=== PATIENT | female | born 1945 | race Caucasian/White ===

== ENCOUNTER 2021-11-18 14:26 | Emergency (ER) | payer OTHER ==
--- OUTSIDE RECORDS SUMMARY | 2021-11-18 14:31 | XMS REPORT | Continuity of Care Document ---
:1945 Author Organization [facility] t Address [address] [place] [address] Care Team Providers Name Role Phone Rayshawn Esquivel MD Primary Care Physician Alvin_Angel Attending Clinician Unavailable Aakash Kelly Attending Clinician Jacklyn Camara RN Attending Clinician Unavailable [place] CABRAL Attending Clinician Unavailable Doctor Unassigned, [place] Attending Clinician Unavailable KATIE SANCHEZ Attending Clinician Unavailable John Chen Attending Clinician Alvin_S Admitting Clinician Unavailable John Chen Admitting Clinician Payers Payer Name Policy Type Policy Number Effective Date Expiration Date S ourrosangela HUMANA - GOLD PLUS [id number] (MEDICARE REPLACEMENT HMO) Problems Condition Condition Condition Status Onset Resolution Last Treating Co mments Source Name Details Category Date Date Treatment Clinician Date Thyroid Thyroid Problem Active [facility] nodule Nodule 8-07 Family 00:00: Practic 00 e Tinea Tinea Problem Active [facility] corporis Corporis 7-05 Family 00:00: Practic 00 e Pain in Pain in Problem Active [facility] throat Throat 7-05 Family 00:00: Practic 00 e Gastroesop Gastroesop Problem Active [facility] hageal hageal 16 Family reflux Reflux 00:00: Practic disease Disease 00 e without without esophagiti Esophagiti s s Finding of Finding of Problem Active [facility] esophagus Esophagus 03-13 Fami ly 00:00: Practic 00 e Seborrheic Seborrheic Problem Active [facility] keratosis Keratosis 8-04 Fami ly 00:00: Practic 00 e Hypercoagu Hypercoagu Problem Active [facility] lability lability 4-08 Family state State 00:00: Practic 00 e Atrial Atrial Problem Active [facility] fibrillati Fibrillati 408 paddy on on 00:00: Practic 00 e Blood Blood Problem Active [facility] coagulatio Coagulatio 408 [facility] n disorder n Disorder 00:00: Pr actic 00 e Fredrickso Fredrickso Problem Active [facility] n type IIa n Type IIa 2-05 [facility] hyperlipop Hyperlipop 00:00: Pr actic roteinemia roteinemia 00 e Hyperchole Hyperchole Problem Active [facility] sterolemia sterolemia 205 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 JAZIEL 08/24/15: tender to palpation @ supraspin atus; forward elevation to 160 deg; + Breonna's and Speed's. Obstructiv Obstructiv Problem Active [facility] e sleep e Sleep 2-03 Family apnea Apnea 00:00: Practic syndrome Syndrome 00 e Common Common Problem Active 2014-02 [facility] variable Variable 1-24 Family agammaglob Agammaglob 00:00: Pr actic ulinemia ulinemia 00 e Secondary Secondary Problem Active [facility] [place] hypothyroi Hypothyroi 3-07 [facility] dism dism 00:00: Practic 00 e Hypothyroi Hypothyroi Problem Active [facility] dism dism 3-07 Family 00:00: Practic 00 e Pure Pure Problem Active [facility] hyperchole Hyperchole 307 [facility] sterolemia sterolemia 00:00: Pr actic 00 e Palpitatio Palpitati Problem Active 2021-09-18 Memoria ns ons 22:22:24 l (finding) (finding) Herm brianda Active Problem 09/18/2021 [facility] Premature Premature Problem Active 2021-09-18 Memoria atrial atrial 22:22:24 l contractio contractio He rmann n n (disorder) (disorder) Active Problem 09/18/2021 [facility] Retrostern Problem Active 2021-09-18 M emoria al pain Retrostern 22:22:24 l (finding) al pain Virgilio n (finding) Active Problem 09/18/2021 [facility] Depressive Depressiv Problem Active 2017-04-14 Memoria disorder e disorder 05:02:36 l (disorder) (disorder) He rmann Active Problem 04/14/2017 [facility] Diarrhea Diarrhea Problem Active 2017-04-14 Memoria (finding) (finding) 05:02:36 l Active [place] Problem 04/14/2017 [facility] Dry skin Dry skin Problem Active 2017-04-14 Memoria (finding) (finding) 05:02:36 l Active [place] Problem 04/14/2017 [facility] Glaucoma Glaucoma Problem Active 2017-04-14 Memoria (disorder) (disorder) 05:02:36 l Active [place] Problem 04/14/2017 [facility] Irritable Irritable Problem Active 2017-04-14 Memoria colon colon 05:02:36 l (disorder) (disorder) He rmann Active Problem 04/14/2017 [facility] Snoring Snoring Problem Active 2017-04-14 Me moria (finding) (finding) 05:02:36 l Active [place] Problem 04/14/2017 scheduled sleep study 04-23-17 [facility] History of Past Illness Condition Condition Condition Status Onset Resolution Last Treating Co mments Source Name Details Category Date Date Treatment Clinician Date Noninfecti Problem 2017-2017-04-14 2017-04-14 Memoria ve Noninfecti 04-12 05:02:36 05:02:36 l gastroente ve 06:00: Virgilio n ritis and gastroente 00 colitis, ritis and unspecifie colitis, d unspecifie d 04/12/2017 04/14/2017 [facility] Allergies, Adverse Reactions, Alerts Allergy Allergy Status Severity Reaction(s) Onset Inactive Treating Comm ents Source Name Type Date Date Clinician Anesthet Propensi Active Method i ics - ty to 11-14 st Jacquelyn adverse 00:00: Hospita Type- reaction 00 l Parabens s to drug NO KNOWN Drug Active [facility] ALLERGIE Class ity of [facility] ciproflo ciproflo Active Memori a xacin xacin l [place] medtroni medtroni Active Memori a dazole dazole l containi containi Virgilio n ng ng compound compound s s Flagyl Flagyl Active diarrhea, Memoria Cutaneous l eruption [place] (morphologic abnormality) Family History Family Member Diagnosis Comments Start Date Stop Date Source Natural father Heart disease [facility] father Hy[facility] Natural father Stroke [facility] Natural mother Heart disease [facility] Natural mother Hypertension [facility] mother Stroke [facility] Other Cancer [facility] Social History Social Habit Start Date Stop Date Quantity Comments Source Exposure to [facility] SARS-CoV-2 [facility] (event) [place] Social History 2019-03-06 2019-03-06 [facility] Suhail kyle 20:05:51 20:05:51 Alcohol intake 2015-12-14 2015-12-14 Current drinker [facility] 00:00:00 00:00:00 of alcohol (finding) Tobacco use and 2015-10-11 2015-10-11 Smokeless tobacco [facility] exposure 00:00:00 00:00:00 non-user Alcohol Comment 2015-10-05 2015-10-05 3 times a week [facility] 00:00:00 00:00:00 Sex [birth year] [facility] 00:00:00 00:00:00 Smoking Status Start Date Stop Date Source Unknown if ever smoked [facility] Social History 2017-04-06 18:39:10 2017-04-06 18:39:10 [facility] Never smoked tobacco [facility] Medications Ordered Filled Start Stop Current Ordering Indication Dosage Frequency Signature Comments Components Source Medication Medication Date Date Medication? Clinician (SIG) Name Name Metoprolol Yes = 1 tab, Mem oria Succinate 3-30 PO, Daily, l ER 25 mg 21:48: # 90 tab, Herm brianda oral 00 3 tablet, Refill(s), extended Pharmacy: release [facility], 160.02, cm, 09/15/20 14:04:00 CDT, Height, 78.182, kg, 09/15/20 14:04:00 CDT, Weight apixaban 5 Yes = 1 tab, Mem oria MG Oral 1-19 PO, Q12H, l Tablet 19:06: # 180 tab, Ketty nn [Eliquis] 00 3 Refill(s), Pharmacy: [facility], 160.02, cm, 09/15/20 14:04:00 CDT, Height, 78.182, kg, 09/15/20 14:04:00 CDT, Weight apixaban 5 2020-02 Yes = 1 tab, Mem oria MG Oral 0-21 PO, Q12H, l Tablet 18:58: # 180 tab, Ketty nn [Eliquis] 00 0 Refill(s), Pharmacy: [facility], 160.02, cm, 09/15/20 14:04:00 CDT, Height, 78.182, kg, 09/15/20 14:04:00 CDT, Weight apixaban 5 2019-02 Yes = 1 tab, Mem oria MG Oral 0-06 PO, Q12H, l Tablet 19:55: # 60 tab, Virgilio n [Eliquis] 00 0 Refill(s), Pharmacy: [place] [id number], 160.02, cm, 09/16/19 9:24:00 CDT, Height, 67.528, kg, 09/16/19 9:24:00 CDT, Weight apixaban 5 2019-02 No = 1 tab, Mem oria MG Oral 0-05 PO, Q12H, l Tablet 21:18: # 180 tab, Ketty nn [Eliquis] 00 3 Refill(s), Pharmacy: [facility], 160.02, cm, 09/16/19 9:24:00 CDT, Height, 67.528, kg, 09/16/19 9:24:00 CDT, Weight Metoprolol 2020- Yes See Memoria Succinate 7-02 Instructio l ER 25 mg 13:12: ns, TAKE 1 Her joiner oral 00 TABLET tablet, EVERY DAY, extended # 90 tab, release 3 Refill(s), Pharmacy: [facility], 160.02, cm, 03/28/19 10:22:00 [employer], Height, 63.182, kg, 03/28/19 10:22:00 [employer]ATIONAL TEACHER, Weight apixaban 5 2020-0 Yes 5 mg = 1 Mem oria MG Oral 2-19 tab, PO, l Tablet 21:08: Q12H, # [place] [Eliquis] 00 180 tab, 1 Refill(s), Pharmacy: [facility] metoprolol 2020-0 Yes 25 mg = 1 Me moria 25 mg oral 2-19 tab, PO, l tablet, 21:08: Daily, # Virgilio n extended 00 90 tab, 1 release Refill(s), Pharmacy: [facility] metoprolol 2020-0 No 25 mg = 1 Me moria 25 mg oral 2-19 tab, PO, l tablet, 20:29: Daily, # Virgilio n extended 00 90 tab, 0 release Refill(s) apixaban 5 2020-0 No 5 mg, PO, Me moria MG Oral 2-19 Q12H, 0 l Tablet 20:29: Refill(s) Virgilio n [Eliquis] 00 simvastatin 2020-0 Yes 20 mg = 1 M emoria 20 mg oral 1-09 tab, PO, l tablet 20:05: Bedtime, # Ketty nn 00 30 tab, 1 Refill(s) levothyroxi 2020-0 Yes 88 Memori a ne 88 mcg 1-09 microgram l (0.088 mg) 20:05: = 1 tab, Her joiner oral tablet 00 PO, Daily, # 60 tab, 0 Refill(s) buPROPion 2020-0 Yes 100 mg = 1 Me moria 100 mg oral 1-09 tab, PO, l tablet 20:05: BID, # 60 Virgilio n 00 tab, 0 Refill(s) bimatoprost 2020-0 Yes 1 drp, Gurmeet eduardo 0.3 MG/ML 03-06 BOTH EYES, l Ophthalmic 20:05: QPM, 0 Ketty nn Solution 00 Refill(s) [Lumigan] Estrace 2020-0 Yes PO, Daily, Gurmeet eduardo -09 0 l 20:05: Refill(s) [place] 00 Nystatin 2020-0 Yes 1 appl, Memori a 100 UNT/MG 03-06 TOP, TID, l Topical 20:05: 0 [place] Ointment Refill(s) Saline Lock No 10 mL, Gurmeet eduardo Flush 2-15 Soln, IV l 14:32: Push, As Indicated PRN for flush, first dose 04/12/17 8: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 LR 1,000 mL No 1,000 mL, M emoria 2-15 IV, 75 l 14:32: mL/hr, start date 04/12/17 8: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 Misc No 800 mL, Memoria Medication 2-15 Soln-IV, l 14:15: IV, Once, first dose 04/12/17 8:15:00 [employer]ATIONAL TEACHER, stop date 04/12/17 8:15:00 [employer] TE[employer] lidocaine No 2 mL, Memoria 2-15 Injection, l 13:50: IV, Once, first dose 04/12/17 7:50:00 VOCATIONAL TEACHER, stop date 04/12/17 7:50:00 [employer]ATIONAL TE[employer] propofol No 100 mg = Memor ia 2-15 10 mL, l 13:50: Emulsion, IV, Once, first dose 04/12/17 7:50:00 VOCATIONAL TEACHER, stop date 04/12/17 7:50:00 [employer]ATIONAL TEACHER Lidocaine No 0.2 mL, Memor ia 2% 0.2 mL 2-15 Injection, l IV Start 12:16: Subcutaneo Her [facility] [[facility]] 00 us, Once PRN for other (see comment), first dose 04/12/17 6:16:00 VOCATIONAL TEACHER LR 1,000 mL No 1,000 mL, M emoria 2-15 IV, 30 l 12:16: mL/hr, start date 04/12/17 6:16:00 [employer]ATIONAL TEACHER Estradiol Yes VAG, Memoria 0.1 MG/ML 209 qWeek, 0 l Vaginal 18:35: Refill(s) Ketty nn Cream [Estrace] Clobetasol Yes 1 marian, Memor ia Propionate 04-06 TOP, l 0.5 MG/ML 18:35: qWeek, 0 Herm brianad Topical 00 Refill(s) Cream Bupropion Yes 100 mg = 1 Me moria Hydrochlori 2-09 tabs, l de 100 MG 18:35: Oral, BID, He rmann Oral Tablet 00 0 [Wellbutrin Refill(s) ] bimatoprost Yes 1 drops, Me moria 0.1 MG/ML 2 Eye-Both, l Ophthalmic 18:32: qPM, 0 Ketty nn Solution 00 Refill(s) [Lumigan] Thyroxine Yes 88 mcg, Memor ia 2 Daily, 0 l 18:32: Refill(s), [place] 00 thyroid simvastatin Yes 20 mg = 1 M emoria 20 mg oral 04-06 tabs, l tablet 18:32: Oral, qHS, Ketty nn 00 0 Refill(s) clobetasol Yes [facility] (TEMOVATE) 24 st 0.05 % 00:00: Hospita cream 00 l LUMIGAN Yes [facility] 0.01 % 09-13 st ophthalmic 00:00: Hospita drops 00 l mupirocin Yes [facility] (BACTROBAN) 09-05 st 2 % 00:00: Hospita ointment 00 l buPROPion Yes [facility] (WELLBUTRIN 08-12 st ) 100 MG 00:00: Hospita tablet 00 l levothyroxi Yes [facility] i ne 6-17 st (SYNTHROID, 00:00: Hospit a LEVOTHROID) 00 l 88 MCG tablet simvastatin Yes Method i (ZOCOR) 20 6-17 st MG tablet 00:00: Hospita 00 l meloxicam Yes [facility] (MOBIC) 15 6-14 st MG tablet 00:00: Hospita 00 l bupropion bupropion No bupropion [place] HCl 100 mg HCl 100 mg HCl 100 mg Family tablet TAKE tablet TAKE tablet Practic 1 TABLET 1 TABLET TAKE 1 e TWICE DAILY TWICE DAILY TABLET TWICE DAILY Eliquis 5 Eliquis 5 No Eliquis 5 Village mg tablet mg tablet mg tablet Family Take 1 Take 1 Take 1 Practic tablet tablet tablet e twice a day twice a day twice a by oral by oral day by route. route. oral route. famotidine famotidine No famotidine [facility] 40 mg 40 mg 40 mg Family tablet Take tablet Take tablet Practic 1 tablet 1 tablet Take 1 e every day every day tablet by oral by oral every day route. route. by oral route. ketoconazol ketoconazol No ketoconazo [facility] e 2 % e 2 % le 2 % Family topical topical topical Practi c cream APPLY cream APPLY cream e TO THE TO THE APPLY TO AFFECTED AFFECTED THE AREA(S) BY AREA(S) BY AFFECTED TOPICAL TOPICAL AREA(S) BY ROUTE TWICE ROUTE TWICE TOPICAL DAILY DAILY ROUTE TWICE DAILY levothyroxi levothyroxi No levothyrox [facility] ne 88 mcg ne 88 mcg ine 88 mcg Family tablet Take tablet Take tablet Practic 1 tablet 1 tablet Take 1 e every day every day tablet by oral by oral every day route. route. by oral route. Lumigan Lumigan No Lumjurgen [place] e 0.01 % eye 0.01 % eye 0.01 % eye Family drops 1 drops 1 drops 1 Practi c drop in drop in drop in e each eye each eye each eye metoprolol metoprolol No metoprolol [facility] succinate succinate succinate Family ER 25 mg ER 25 mg ER 25 mg Pra ctic tablet,exte tablet,exte tablet,ext e nded nded ended release 24 release 24 release 24 hr Take 1 hr Take 1 hr Take 1 tablet tablet tablet every day every day every day by oral by oral by oral route. route. route. pantoprazol pantoprazol No 1 Q1D pantoprazo [facility] e 40 mg e 40 mg le 40 mg Famil y tablet,milagros tablet,milagros tablet,del Practic yed release yed release ayed e Take 1 Take 1 release tablet tablet Take 1 every day every day tablet by oral by oral every day route. route. by oral route. [facility] mg n 20 mg Family tablet TAKE tablet TAKE tablet Practic 1 TABLET AT 1 TABLET AT TAKE 1 e BEDTIME BEDTIME TABLET AT BEDTIME Immunizations Ordered Filled Immunization Date Status Comments [facility] e Immunization Name Name SARS-COV-2 COVID-19 2020-06-03 Completed Unive [facility] of PFIZER VACCINE 00:00:00 [facility] SARS-COV-2 COVID-19 2020-06-03 Completed Unive rsity of [employer] VACCINE 00:00:00 [facility] SARS-COV-2 COVID-19 2020-05-12 Completed Unive rsity of PFIZER VACCINE 00:00:00 [facility] SARS-COV-2 COVID-19 2020-05-12 Completed Unive rsity of PFIZER VACCINE 00:00:00 [facility] influenza, influenza, 2016-12-13 Completed [facility] seasonal, seasonal, 00:00:00 Practice injectable, injectable, preservative free preservative free influenza, influenza, 2015-11-05 Completed [facility] seasonal, seasonal, 00:00:00 Practice injectable, injectable, preservative free preservative free pneumococcal pneumococcal 2015-05-06 Completed [facility] paddy conjugate PCV 13 conjugate PCV 13 00:00:00 Pr actice Influenza, Influenza, 2014-10-26 Completed [facility] injectable, MDCK, injectable, MDCK, 00:00:00 Practice preservative free preservative free influenza, influenza, 2013-11-03 Completed [facility] seasonal, seasonal, 00:00:00 Practice injectable injectable influenza, influenza, 2013-01-16 Completed [facility] seasonal, seasonal, 00:00:00 Practice injectable injectable Vital Signs Vital Name Observation Time Observation Value Comments Source BP Diastolic 2021-09-27 00:00:00 83 mm[Hg] [facility] Practice BP Systolic 2021-09-27 00:00:00 139 mm[Hg] [facility] BP Diastolic 2021-08-30 00:00:00 78 mm[Hg] [facility] Height 2021-08-30 00:00:00 64 [in_i] [facility] BMI (Body Mass Index) 2021-08-30 00:00:00 30.7 kg/m2 [facility] BP Systolic 2021-08-30 00:00:00 124 mm[Hg] [facility] Body Weight 2021-08-30 00:00:00 179 [lb_av] [facility] BP Diastolic 2021-08-23 00:00:00 80 mm[Hg] [facility] Height 2021-08-23 00:00:00 64 [in_i] [facility] BMI (Body Mass Index) 2021-08-23 00:00:00 29.2 kg/m2 [facility] BP Systolic 2021-08-23 00:00:00 120 mm[Hg] [facility] Body Weight 2021-08-23 00:00:00 170 [lb_av] [facility] Height 2021-05-31 00:00:00 64 [in_i] [facility] BMI (Body Mass Index) 2021-05-31 00:00:00 29.2 kg/m2 [facility] Body Weight 2021-05-31 00:00:00 170 [lb_av] [facility] BP Diastolic 2021-03-02 00:00:00 78 mm[Hg] [facility] Practice Height 2021-03-02 00:00:00 64 [in_i] [facility] BMI (Body Mass Index) 2021-03-02 00:00:00 29.2 kg/m2 [facility] Practice BP Systolic 2021-03-02 00:00:00 155 mm[Hg] [facility] Practice Body Weight 2021-03-02 00:00:00 170.2 [lb_av] [facility] Practice Systolic (mm Hg) 2020-09-15 19:04:00 Gurmeet rial [place] Diastolic (mm Hg) 2020-09-15 19:04:00 Mem orial [place] Heart Rate 2020-09-15 19:04:00 [facility] [place] Height 2020-09-15 19:04:00 160.02 cm [facility] [place] Weight 2020-09-15 19:04:00 [facility] [place] BMI Calculated 2020-09-15 19:04:00 Memori al [place] Systolic (mm Hg) 2019-09-16 14:24:00 Gurmeet rial [place] Diastolic (mm Hg) 2019-09-16 14:24:00 Mem orial [place] Heart Rate 2019-09-16 14:24:00 [facility] [place] Height 2019-09-16 14:24:00 160.02 cm [facility] [place] Weight 2019-09-16 14:24:00 [facility] [place] BMI Calculated 2019-09-16 14:24:00 Memori al [place] Systolic (mm Hg) 2019-03-28 16:22:00 Gurmeet rial [place] Diastolic (mm Hg) 2019-03-28 16:22:00 Mem orial [place] Heart Rate 2019-03-28 16:22:00 [facility] [place] Height 2019-03-28 16:22:00 160.02 cm [facility] [place] Weight 2019-03-28 16:22:00 [facility] [place] BMI Calculated 2019-03-28 16:22:00 Memori al [place] Systolic (mm Hg) 2019-03-20 15:57:00 Gurmeet rial [place] Diastolic (mm Hg) 2019-03-20 15:57:00 Mem orial [place] Heart Rate 2019-03-20 15:57:00 [facility] [place] Height 2019-03-20 15:57:00 160.02 cm [facility] [place] Weight 2019-03-20 15:57:00 [facility] [place] BMI Calculated 2019-03-20 15:57:00 Memori al [place] Systolic (mm Hg) 2019-03-06 20:01:00 Gurmeet rial [place] Diastolic (mm Hg) 2019-03-06 20:01:00 Mem orial [place] Heart Rate 2019-03-06 20:01:00 [facility] [place] Height 2019-03-06 20:01:00 160.02 cm [facility] [place] Weight 2019-03-06 20:01:00 [facility] [place] BMI Calculated 2019-03-06 20:01:00 Memori al [place] Systolic (mm Hg) 2017-04-12 14:52:00 Gurmeet rial [place] Diastolic (mm Hg) 2017-04-12 14:52:00 Mem orial [place] Respitory Rate 2017-04-12 14:52:00 Memori al [place] Heart Rate 2017-04-12 14:20:00 [facility] [place] Systolic (mm Hg) 2017-04-12 14:20:00 Gurmeet rial [place] Diastolic (mm Hg) 2017-04-12 14:20:00 Mem orial [place] Respitory Rate 2017-04-12 14:20:00 Memori al [place] Heart Rate 2017-04-12 14:10:00 [facility] [place] Systolic (mm Hg) 2017-04-12 14:10:00 Gurmeet rial [place] Diastolic (mm Hg) 2017-04-12 14:10:00 Mem orial [place] Respitory Rate 2017-04-12 14:10:00 Memori al [place] Temperature Oral (F) 2017-04-12 14:00:00 36.3 Radha [facility] [place] Heart Rate 2017-04-12 14:00:00 [facility] [place] Height 2017-04-12 12:16:00 160.02 cm [facility] [place] Temperature Oral (F) 2017-04-12 12:16:00 36.4 Radha [facility] [place] Height 2017-04-06 18:29:00 160.02 cm [facility] [place] Procedures Procedure Date / Time Performing Clinician Source Performed US, NECK, 2021-08-30 00:00:00 [facility] Katja hunter THYROID/PARATHYROID Practice bone density 2021-03-02 00:00:00 [facility] Katja hunter Practice MAMMO, screening, 2021-03-02 00:00:00 [facility] Ronald paddy digital, bilateral Practice ASSIGNMENT OF BENEFITS 2020-10-17 20:19:13 Doctor Unassigned, No [facility] COLONOSCOPY FLEXIBLE; 2017-04-12 13:52:00 Alexandra Wang WITH BIOPSY; SINGLE OR MULTIPLE [id number] (Other)<sup>1</sup> Repair of Shoulder 2017-02-26 00:00:00 [facility] canelo [facility] Shoulder surgery 2015-09-27 00:00:00 Katja swanson Hysterectomy (Total) 1986-02-26 00:00:00 [facility] Practice Section 1983-02-26 00:00:00 [facility] Practice Hysterectomy 1983-02-26 00:00:00 [facility] brianda [facility] colonoscopy<sup>2</sup> [facility] Plan of Care Planned Activity Planned Date Details Comments Source Future Scheduled 2021-10-27 HEPATITIS B VACCINES [facility] Test 07:04:32 (1 of 3 - 3-dose series) [code = HEPATITIS B VACCINES (1 of 3 - 3-dose series)] Future Scheduled 2021-10-27 COVID-19 VACCINE (#1) [facility] Test 07:04:32 [code = COVID-19 VACCINE (#1)] Future Scheduled 2021-10-27 BREAST CANCER [facility] Test 07:04:32 SCREENING [code = BREAST CANCER SCREENING] Future Scheduled 2021-10-27 COLONOSCOPY SCREENING [facility] Test 07:04:32 [code = COLONOSCOPY SCREENING] Future Scheduled 2021-10-27 SHINGLES VACCINES (1 [facility] Test 07:04:32 of 2) [code = SHINGLES VACCINES (1 of 2)] Future Scheduled 2021-10-27 65+ [facility] 07:04:32 VACCINE (1 - PCV) [code = 65+ PNEUMOCOCCAL VACCINE (1 - PCV)] Future Scheduled 2021-10-27 [facility]FLUENZA [facility]ACCINE [facility] 07:04:32 [code = INFLUENZA VACCINE] Encounters Start End Encounter Admission Attending Care Care Encounter Source Date/Time Date/Time Type Type Clinicians Facility Department ID 2021-11-03 2021-11-03 Outpatient MARIBEL LÓPEZ [id number] Memoria 14:00:00 14:00:00 09 l [place] 2021-10-04 2021-10-04 Outpatient Dave_S VFP VFP [id number] [facility] 00:00:00 00:00:00 [id number] Family Practic e 2021-09-27 2021-09-27 Outpatient Dave_S VFP VFP [id number] [facility] 00:00:00 00:00:00 [id number] Family Practic e 2021-09-27 2021-09-27 Rayshawn VFP [place] - [id number] [facility] 00:00:00 00:00:00 Sabas Norton Family DO: [id number] Medical - Pract ic 1092 _[facility] [address] [facility], ([facility]) [place] [address] , Ph. 2021-09-16 2021-09-16 Ambulatory nullFlavo [facility] [id number] Memoria 18:15:00 18:15:00 Pre-Reg r Cardiology 08 l Model Ketty nn 2021-09-16 2021-09-16 Outpatient MARIBEL LÓPEZ [id number] Memoria 13:15:00 13:15:00 08 frida Johnston 2021-09-16 2021-09-16 Outpatient Maniar, RC [id number] 13:15:00 13:15:00 Aakash H 08 2021-09-16 2021-09-16 Outpatient Dave_S VFP VFP [id number] [facility] [facility] 00:00:00 [id number] Family Practic e 2021-09-14 2021-09-14 [place] [id number] Memoria 18:15:00 18:15:00 Pre-Reg r Cardiology 07 l Peg Virgilio n 2021-09-14 2021-09-14 Outpatient MARIBEL LÓPEZ [id number] Memoria 13:15:00 13:15:00 07 l Preston 2021-09-14 2021-09-14 Outpatient Maniar, MG [facility] [id number] 13:15:00 13:15:00 Aakash Cao 2021-08-30 2021-08-30 Outpatient Dave_S VFP VFP [id number] [facility] 12:27:00 12:27:00 [id number] Family Practic e 2021-08-30 2021-08-30 Outpatient Dave_S VFP VFP [id number] [facility] 00:00:00 00:00:00 [id number] Family Practic e 2021-08-30 2021-08-30 Rayshawn VFP [place] - [id number] [facility] 00:00:00 00:00:00 Sabas Norton Family DO: 1309 Medical - Pract ic Fm [address] [address] Suite [facility] ([place] [address] , Ph. 2021-08-25 2021-08-25 Outpatient Dave_S VFP VFP [id number] [facility] 02:56:00 02:56:00 [id number] Family Practic e 2021-08-25 2021-08-25 Outpatient VFP VFP [id number] [facility] 02:56:00 02:56:00 [id number] Family Practic e 2021-08-24 2021-08-24 Outpatient Dave_S VFP VFP [id number] [facility] 12:07:00 12:07:00 [id number] Family Practic e 2021-08-23 2021-08-23 Outpatient Dave_S VFP VFP [id number] [facility] 06:07:00 06:07:00 [id number] Family Practic e 2021-08-23 2021-08-23 Jacklyn VFP [place] - [id number] V [facility] 00:00:00 00:00:00 Yaritza MILLWR[employer] SUPERVISOR: [facility] 1309 Medical - Practi c [address] [facility] [place] [address] , Ph. 2021-05-31 2021-05-31 Outpatient Dave_S VFP VFP [id number] [facility] 03:26:00 03:26:00 [id number] Family Practic e 2021-05-31 2021-05-31 Outpatient VFP VFP [id number] [facility] 03:26:00 03:26:00 [id number] Family Practic e 2021-05-31 2021-05-31 Rayshawn VFP [place] - [id number] [facility] 00:00:00 00:00:00 Sabas Norton Family DO: 1309 Medical - Pract ic Fm [address] [address] [facility], ([facility]) [place] [address] , Ph. 2021-05-25 2021-05-27 Phone nullFlavo [facility] [id number] Memoria 19:52:23 04:59:59 Message r Cardiology 06 l [facility] Virgilio 2021-05-25 2021-05-26 Outpatient MHMG [facility] [id number] 14:52:23 23:59:59 06 2021-05-11 2021-05-11 Outpatient VFP VFP [id number] [facility] 11:28:00 11:28:00 [id number] Family Practic e 2021-03-16 2021-03-18 Phone nullFlavo [facility] [id number] Memoria 16:50:17 05:59:59 Message r Cardiology 05 l [facility] Virgilio 2021-03-16 2021-03-17 Outpatient [facility] [id number] 10:50:17 23:59:59 05 2021-03-17 2021-03-17 Outpatient Dave_S VFP VFP [id number] [facility] 11:54:00 11:54:00 [id number] Family Practic e 2021-03-15 2021-03-15 Outpatient Dave_S VFP VFP [id number] [facility] 10:10:00 10:10:00 [id number] Family Practic e 2021-03-14 2021-03-14 Outpatient Dave_S VFP VFP [id number] [facility] 02:44:00 02:44:00 [id number] Family Practic e 2021-03-02 2021-03-02 Outpatient Dave_S VFP VFP [id number] [facility] 11:03:00 11:03:00 [id number] Family Practic e 2021-03-02 2021-03-02 Outpatient Dave_S VFP VFP [id number] Village 05:34:00 05:34:00 [id number] Family Practic e 2021-03-02 2021-03-02 Outpatient Dave_S VFP VFP [id number] - [facility] 05:34:00 05:34:00 [id number] Family Practic e 2021-03-02 2021-03-02 Rayhsawn VFP [place] - [id number] [facility] 00:00:00 00:00:00 Sabas Norton Family DO: 1309 Medical - Pract ic Fm [address] [address] [facility], ([facility]) [place] [address] , Ph. 2021-01-27 2021-01-27 Outpatient Dave_S VFP VFP [id number] [facility] 08:58:00 08:58:00 [id number] Family Practic e 2020-12-13 2020-12-15 Phone nullFlavo [facility] [id number] Memoria 14:31:18 04:59:59 Message r Cardiology 04 l [facility] Virgilio n 2020-12-13 2020-12-14 Outpatient [facility] [id number] 09:31:18 23:59:59 04 2020-10-19 2020-10-19 Letter Jacklyn Camara [id number] [facility] 00:00:00 00:00:00 (Out) EDGARDO [id number] [facility] [id number] Jovan as [phone] [address] 2020-10-17 2020-10-17 Outpatient R [facility] [id number] [facility] 15:45:00 15:45:00 [id number] ity [facility] 2020-10-17 2020-10-17 Outpatient R [facility] [id number] Univers 15:45:00 15:45:00 ity [facility] 2020-10-17 2020-10-17 Outpatient R MISHA [facility] [id number] Univers 15:20:00 15:20:00 , [place] [facility] 2020-10-17 2020-10-17 Orders Doctor DEJA [id number] [facility] 00:00:00 00:00:00 Only Unassigned, EDGARDO [id number] [facility] [place] [facility] [id number] Jovan as [phone] [address] 2020-09-15 2020-09-16 Outpatient nullFlavo [facility] [id number] Memoria 19:30:00 04:59:59 r Cardiology 06 l Peg alexandre 2020-09-15 2020-09-15 Outpatient Maniar, [facility] [id number] 14:30:00 23:59:59 Aakash Suhail 06 2020-09-15 2020-09-15 Outpatient MHIE MHIE [id number] Memoria 14:30:00 14:30:00 06 frida Johnston 2020-06-03 2020-06-03 Outpatient Kathy SANCHEZ [facility] [id number] Univers 11:00:00 10:51:33 KATIE [facility] 2020-05-12 2020-05-12 Outpatient Kathy SANCHEZ, [facility] [id number] Univers 11:00:00 10:44:46 KATIE [facility] 2019-12-02 2019-12-04 Phone nullFlavo [facility] [id number] Memoria 19:33:50 04:59:59 Message r Cardiology 02 l Peg Lewisan baldomero 2019-12-02 2019-12-03 Outpatient [facility] [id number] 14:33:50 23:59:59 2019-12-01 2019-12-03 Phone nullFlavo [facility] [id number] Memoria 16:46:31 04:59:59 Message r Cardiology 01 l Peg alexandre 2019-12-01 2019-12-02 Outpatient [facility] [id number] 11:46:31 23:59:59 2019-09-16 2019-09-17 Outpatient nullFlavo [facility] [id number] Memoria 14:30:00 04:59:59 r Cardiology 05 l Peg Poole n 2019-09-16 2019-09-16 Outpatient Maniar, [facility] MG [id number] 09:30:00 23:59:59 Aakash H 05 2019-09-16 2019-09-16 Outpatient MHIE MHIE [id number] Memoria 09:30:00 09:30:00 05 l Preston 2019-08-28 2019-08-29 Between nullFlavo MG [id number] Memoria 13:12:44 13:12:44 Visit r Cardiology 03 l Peg Poole n 2019-08-28 2019-08-29 Outpatient MH[facility] MG [id number] 08:12:44 08:12:44 03 2019-04-16 2019-04-18 Phone nullFlavo MG [id number] Memoria 20:27:11 05:59:59 Message r Cardiology 00 l Peg alexandre 2019-04-16 2019-04-17 Outpatient [facility] MG [id number] 14:27:11 23:59:59 00 2019-03-28 2019-03-29 [place] [id number] Memoria 16:15:00 05:59:59 r Cardiology 04 l Peg Poole n 2019-03-28 2019-03-28 Outpatient Maniar, [facility] MG [id number] 10:15:00 23:59:59 Aakash H 04 2019-03-28 2019-03-28 Outpatient MHIE IE [id number] Memoria 10:15:00 10:15:00 04 frida LewisPreston 2019-03-20 2019-03-21 [place] [id number] Memoria 15:00:00 05:59:59 r Cardiology 01 l Peg Poole n 2019-03-20 2019-03-21 [place] [id number] Memoria 14:00:00 05:59:59 r Cardiology 02 l Peg Poole n 2019-03-20 2019-03-21 [place] [id number] Memoria 14:00:00 05:59:59 r Cardiology 03 l Peg Poole n 2019-03-20 2019-03-20 Outpatient Maniar, [facility] MG [id number] 09:00:00 23:59:59 Aakash H 01 2019-03-20 2019-03-20 Outpatient Maniar, [facility] [id number] 08:00:00 23:59:59 Aakash H 02 2019-03-20 2019-03-20 Outpatient Maniar, [facility] [id number] 08:00:00 23:59:59 Aakash H 03 2019-03-20 2019-03-20 Outpatient [facility] [id number] Memoria 09:00:00 09:00:00 01 l Preston 2019-03-20 2019-03-20 Outpatient IE [facility] [id number] Memoria 08:00:00 08:00:00 03 l Preston 2019-03-20 2019-03-20 Outpatient [facility] [id number] Memoria 08:00:00 08:00:00 02 l Preston 2019-03-06 2019-03-07 Outpatient nullFlavo [facility] [id number] Memoria 19:45:00 05:59:59 r Cardiology 00 l [facility] Virgilio n 2019-03-06 2019-03-06 Outpatient Maniar, [facility] [id number] 13:45:00 23:59:59 Aakash H 00 2019-03-06 2019-03-06 Outpatient [facility] [id number] Memoria 13:45:00 13:45:00 00 frida Johnston 2017-04-12 2017-04-12 Outpatient nullFlavo [facility] [id number] Memoria 11:54:05 15:00:00 kathy Johnston [facility] 2017-04-12 2017-04-12 [facility] [id number] 05:54:05 09:00:00 John B 8 2017-04-12 2017-04-12 Outpatient nullFlavo [facility] [id number] Memoria 05:54:05 09:00:00 kathy Johnston Results Test Description Test Time Test Comments Results Result Comments Source Influenza virus A and B and SARS-CoV+SARS-CoV-2 (COVID -19) 2021-08-23 16:52:32 panel - Upper respiratory specimen by Rapid immunoassay Test Item Value Reference Range Interpretation Comme nts Influenza A (test code = Influenza A) Presumptive Negative Influenza B (test code = Influenza B) Presumptive Negative SARS-CoV-2 Antigen (test code = SARS-CoV-2 Antigen) Presumptive Neg ative [facility] SARS-CoV+SARS-CoV-2 (COVID- 19) Ag panel - Upper respiratory specimen by Rapid [id number] 16:52:32 Test Item Value Reference Range Interpretation Comments Influenza A (test code = Presumptive Negative Influenza A) Influenza B (test code = Presumptive Negative Influenza B) SARS-CoV-2 Antigen (test Presumptive Negative code = SARS-CoV-2 Antigen) [facility] and SARS-CoV+SARS-CoV-2 (COVID- 19) Ag panel - Upper respiratory specimen by Rapid [id number] 16:52:32 Test Item Value Reference Range Interpretation Comments Influenza A (test code = Presumptive Negative Influenza A) Influenza B (test code = Presumptive Negative Influenza B) SARS-CoV-2 Antigen (test Presumptive Negative code = SARS-CoV-2 Antigen) [facility], [id number] 16:52:04 Test Item Value Reference Range Interpretation Comments Strep (test code = Strep) negative [facility], [id number] 16:52:04 Test Item Value Reference Range Interpretation Comments Strep (test code = Strep) negative [facility], [id number] 16:52:04 Test Item Value Reference Range Interpretation Comments Strep (test code = Strep) negative [facility]
--- NOTE | 2021-11-18 15:12 | RAD REPORT ---
EXAM DESCRIPTION: CT - CTHCSPWOC - 11/18/2021 3:03 pm CLINICAL HISTORY: Trauma, head and neck injury. fall COMPARISON: No comparisons TECHNIQUE: Axial 5 mm thick images of the head were obtained. Axial 2 mm thick images of the cervical spine were obtained with sagittal and coronal reconstruction images generated and reviewed. All CT scans are performed using dose optimization technique as appropriate and may include automated exposure control or mA/KV adjustment according to patient size. FINDINGS: CT HEAD WITHOUT CONTRAST: No acute hemorrhage, hydrocephalus or extra-axial collection is identified.No areas of brain edema or midline shift. The paranasal sinuses and mastoids are clear.The calvarium is intact. CT CERVICAL SPINE WITHOUT CONTRAST: No fracture or subluxation.Moderate lower cervical degenerative changes.No prevertebral soft tissues swelling is identified. Bilateral carotid atherosclerosis. IMPRESSION: No acute intracranial or cervical spine findings. Moderate lower cervical degenerative changes.
--- NOTE | 2021-11-18 15:52 | ER ---
Nurse's Notes [facility] Name: Janessa Putnam Age: 75 yrs Sex: Female : 1945 Arrival Date: 11/18/2021 Time: 14:36 Bed 11 Private MD: Diagnosis: Fall on same level from slipping, tripping and stumbling without subsequent striking against object;Unspecified injury of head, initial encounter Presentation: 11/18 14:39 Chief complaint: Patient states: thinks she tripped n her own feet, feel from standing iw , hit head on cement, and fell to her knees , denies LOC, on eliquis. 14:39 Acuity: HUYEN 3 iw 14:39 Method Of Arrival: EMS: [facility] iw 14:41 Coronavirus screen: At this time, the client does not indicate any symptoms associated iw with coronavirus-19. Ebola Screen: Patient negative for fever greater than or equal to 101.5 degrees Fahrenheit, and additional compatible Ebola Virus Disease symptoms Patient denies exposure to infectious person. Patient denies travel to an Ebola-affected area in the 21 days before illness onset. No symptoms or risks identified at this time. Initial Sepsis Screen: Does the patient meet any 2 criteria? No. Patient's initial sepsis screen is negative. Does the patient have a suspected source of infection? No. Patient's initial sepsis screen is negative. Risk Assessment: Do you want to hurt yourself or someone else? Patient reports no desire to harm self or others. Onset of symptoms was November 18, 2021. Trauma Activation: Alert Physician: ED Physician; Name: ; Notified At: ; Arrived At: Physician: General Surgeon; Name: ; Notified At: ; Arrived At: Physician: Radiology; Name: ; Notified At: ; Arrived At: Physician: Respiratory; Name: ; Notified At: ; Arrived At: Physician: Lab; Name: ; Notified At: ; Arrived At: Historical: - Allergies: 14:40 No Known Allergies; iw - PMHx: 14:40 Atrial fibrillation; iw - Immunization history:: Adult Immunizations up to date. - Social history:: Smoking status: Patient denies any tobacco usage or history of. Screenin:05 Abuse screen: Denies threats or abuse. Denies injuries from another. Nutritional eh3 screening: No deficits noted. Tuberculosis screening: No symptoms or risk factors identified. Fall Risk Fall in past 12 months (25 points). No secondary diagnosis (0 pts). IV access (20 points). Ambulatory Aid- None/Bed Rest/Nurse Assist (0 pts). Gait- Normal/Bed Rest/Wheelchair (0 pts) Mental Status- Oriented to own ability (0 pts). Total Murillo Fall Scale indicates High Risk Score (45 or more points). Fall prevention measures have been instituted. Side Rails Up X 2 Placed Close to Nursing Station Frequent Obs/Assessments Occuring As available patient and family educated on Fall Prevention Program and Strategies. Assessment: 15:05 General: Appears in no apparent distress. comfortable, Behavior is calm, cooperative, eh3 appropriate for age. Pain: Denies pain. Neuro: Level of Consciousness is awake, alert, obeys commands, Oriented to person, place, time, situation. Cardiovascular: Capillary refill < 3 seconds Patient's skin is warm and dry. Respiratory: Airway is patent Respiratory effort is even, unlabored. Musculoskeletal: Circulation, motion, and sensation intact. Range of motion: intact in all extremities. 16:05 Reassessment: Patient and/or family updated on plan of care and expected duration. Pain eh3 level reassessed. Patient is alert, oriented x 3, equal unlabored respirations, skin warm/dry/pink. Vital Signs: 14:41 BP 138 / 81; Pulse 90; Resp 16; Temp 97.9; Pulse Ox 98% on R/A; iw 15:40 BP 137 / 86; Pulse 92; Resp 18; Pulse Ox 99% on R/A; eh3 16:25 BP 135 / 78; Pulse 90; Resp 18; Pulse Ox 98% on R/A; eh3 ED Course: 14:36 Patient arrived in ED. iw 14:40 Triage completed. iw 14:42 [facility]zman [facility]C [facility] kb 14:42 Roberto Sapp MD is Attending Physician. kb 14:55 iKka Cabrera, HEBERT is Primary Nurse. eh3 15:03 CT Head C Spine In Process Unspecified. EDMS 15:05 Patient has correct armband on for positive identification. Bed in low position. Call eh3 light in reach. Side rails up X2. Client placed on continuous cardiac and pulse oximetry monitoring. NIBP monitoring applied. Door closed. Noise minimized. 15:05 No provider procedures requiring assistance completed. eh3 16:27 IV discontinued, intact, bleeding controlled, No redness/swelling at site. Pressure eh3 dressing applied. Administered Medications: No medications were administered Medication: 15:05 VIS not applicable for this client. eh3 Outcome: 15:52 Discharge ordered by . leon 16:26 Discharged to home ambulatory, with family. eh3 16:26 Condition: stable 16:26 Discharge instructions given to patient, Instructed on discharge instructions, follow up and referral plans. Demonstrated understanding of instructions, follow-up care. 16:28 Patient left the ED. eh3 Signatures: Dispatcher [employer] EDSabine Emmanuel, ZABRINA-Clementine GERBER-Tessy Hightower, RN RN Kika Cabrera RN RN eh3
--- NOTE | 2021-11-18 15:52 | EDPHYS ---
Physician Documentation [facility] Name: Janessa Putnam Age: 75 yrs Sex: Female : 1945 Arrival Date: 11/18/2021 Time: 14:36 Bed 11 Private MD: ED Physician Roberto Sapp HPI: 11/19 01:00 This 75 yrs old Female presents to ER via EMS with complaints of Fall Injury. kb 01:00 Details of fall: The patient fell from an upright position, while walking. Onset: The kb symptoms/episode began/occurred just prior to arrival. Associated injuries: The patient sustained injury to the head, pain. Severity of symptoms: At their worst the symptoms were mild, in the emergency department the symptoms are unchanged. The patient has not experienced similar symptoms in the past. The patient has not recently seen a physician. Patient states she tripped over her own feet and hitting left forehead on the ground. Denies LOC. Historical: - Allergies: 11/18 14:40 No Known Allergies; iw - PMHx: 14:40 Atrial fibrillation; iw - Immunization history:: Adult Immunizations up to date. - Social history:: Smoking status: Patient denies any tobacco usage or history of. ROS: 11/19 01:00 Constitutional: Negative for fever, chills, and weight loss. kb Neuro: Positive for headache. All other systems are negative. Exam: 01:00 Constitutional: This is a well developed, well nourished patient who is awake, alert, kb and in no acute distress. Head/Face: Normocephalic, atraumatic. Eyes: Pupils equal round and reactive to light, extra-ocular motions intact. Lids and lashes normal. Conjunctiva and sclera are non-icteric and not injected. Cornea within normal limits. Periorbital areas with no swelling, redness, or edema. ENT: Moist Mucous membranes Cardiovascular: Regular rate and rhythm with a normal S1 and S2. No gallops, murmurs, or rubs. No pulse deficits. Respiratory: Respirations even and unlabored. No increased work of breathing. Talking in full sentences Abdomen/GI: Soft, non-tender. No distention Skin: Warm, dry with normal turgor. Normal color. MS/ Extremity: Pulses equal, no cyanosis. Neurovascular intact. Full, normal range of motion. Neuro: Awake and alert, GCS 15, oriented to person, place, time, and situation. Moves all extremities. Normal gait. Psych: Awake, alert, with orientation to person, place and time. Behavior, mood, and affect are within normal limits. Vital Signs: 11/18 14:41 BP 138 / 81; Pulse 90; Resp 16; Temp 97.9; Pulse Ox 98% on R/A; iw 15:40 BP 137 / 86; Pulse 92; Resp 18; Pulse Ox 99% on R/A; eh3 16:25 BP 135 / 78; Pulse 90; Resp 18; Pulse Ox 98% on R/A; eh3 MDM: 14:42 Patient medically screened. kb 11/19 01:00 Data reviewed: vital signs, nurses notes. Data interpreted: Pulse oximetry: on room air kb is 98 %. Interpretation: normal. Counseling: I had a detailed discussion with the patient and/or guardian regarding: the historical points, exam findings, and any diagnostic results supporting the discharge/admit diagnosis, radiology results, the need for outpatient follow up, a family practitioner, to return to the emergency department if symptoms worsen or persist or if there are any questions or concerns that arise at home. 11/18 15:00 Order name: CT Head C Spine; Complete Time: 15:17 snw Administered Medications: No medications were administered Disposition: 08: Co-signature as Attending Physician, Roberto Sapp MD. rn Disposition Summary: 11/18/21 15:52 Discharge Ordered Location: Home kb Condition: Stable kb Diagnosis - Fall on same level from slipping, tripping and stumbling without subsequent kb striking against object - Unspecified injury of head, initial encounter kb Followup: kb - With: Emergency Department - When: As needed - Reason: Worsening of condition Followup: kb - With: Private Physician - When: 2 - 3 days - Reason: Recheck today's complaints, Continuance of care, Re-evaluation by your physician Discharge Instructions: - Discharge Summary Sheet kb - Head Injury, Adult, [id number] kb Forms: - Medication Reconciliation Form kb - Thank You Letter kb - Antibiotic Education kb - Prescription Opioid Use kb Signatures: Dispatcher [employer] EDSabine Emmanuel, REGISTRATION REPRESENTATIVE-C REGISTRATION REPRESENTATIVE-Tessy Hightower RN RN iw Nieto, Roman, MD MD rn Hall, Erin, RN RN eh3
[2021-11-20 04:32] VITALS: TEMP 97.9
[2021-11-20 04:41] VITALS: BP 135/78; O2SAT 98
== END 2021-11-18 16:28 | disposition home or self-care (01) ==
LOC: ER 14:26
DX: S09.90XA Unspecified injury of head, initial encounter (principal); R51.9 Headache, unspecified; W01.0XXA Fall on same level from slipping, tripping and stumbling without subsequent striking against object, initial encounter
CPT/HCPCS: 70450; 72125; 99283